=== PATIENT | male | born 1935 | race Two or more races ===

== ENCOUNTER 2025-02-13 14:52 | Outpatient (CLI) | payer OTHER ==
[~2025-02-13 14:52] MED LIST: NABUMETONE500 MG PO; PERCOCET 5/3251 TAB PO
== END 2025-02-13 14:56 | disposition home or self-care (01) ==
LOC: RAD 14:52
PROVIDERS: ATTEND Internal Medicine Cardiovascular Disease
DX: J40 Bronchitis, not specified as acute or chronic (principal); I10 Essential (primary) hypertension; J44.9 Chronic obstructive pulmonary disease, unspecified

== ENCOUNTER 2025-02-22 06:56 | Emergency (ER) | payer OTHER ==
[~2025-02-22] VITALS: Ht 167.6 cm; Wt 86.2 kg
[2025-02-22] MEDS ORDERED: TAMS0.4C PO (07:18)
[2025-02-22] MEDS ORDERED: XARELTO10 MG (07:18)
[2025-02-22 10:09] LABS: BASO % 0.7 % (0.1-1.2); EOS # 0.09 (0.04-0.54); EOS % 1.5 % (0.7-7.0); LYMPH # 1.11 (1.18-3.74); LYMPH % 18.7 % (19.3-53.1); MEAN PLATELET VOLUME 10.70 fl (9.4-12.4); MONO # 0.49 (0.24-0.82); MONO % 8.2 % (4.7-12.5); NEUT # 4.20 (1.56-6.13); NEUT % 70.7 % (34.0-71.1); RED CELL DISTRIBUTION WIDTH 13.9 % (11.6-14.4)
[2025-02-22 10:23] LABS: URINE APPEARANCE Cloudy; URINE BILIRRUBIN Small (NEGATIVE); URINE BLOOD Negative; URINE COLOR Dark Yellow; URINE GLUCOSE Negative (NEGATIVE); URINE KETONE Trace (NEGATIVE); URINE LEUKOCYTE Trace; URINE NITRATE Negative; URINE UROBILINOGEN 1.0 E.U./dl
[2025-02-22 10:27] LABS: URINE BACTERIA 452.3 uL (0.0-1933); URINE EPITHELIAL CELLS 50.9 uL (0.0-38.8); URINE RBC 14.2 uL (0.0-20.8); URINE WBC 9.2 uL (0.0-23.2)
[2025-02-22 10:27] LABS: INR 1.41
[2025-02-22 10:31] LABS: ALT/SGPT 129.0 U/L (12-78); AST/SGOT 123.0 U/L (15-37); BILIRUBIN TOTAL 1.6 mg/dL (0.3-1.2); BUN CREA RATIO 16.0 (7.0-25.0); CREATININE SERUM 1.99 mg/dL (0.70-1.30); GFR 31.95; GLOBULINA 3.4 G/DL (2.4-3.5); GLUCOSE FASTING 140.0 mg/dL (65-100); OSMOLALITY SERUM 285.0 MOSM/KG (275-295)
[2025-02-22 10:48] LABS: URINE CAST > 21.83 uL (0.0-1.40); URINE PROTEIN 100 (NEGATIVE)
[2025-02-22 10:50] LABS: URINE CRYSTALS MODERATE /HPF
[2025-02-22 12:11] LABS: ABG PH 7.410 (7.35-7.45); ABG PO2 83.3 mmHg (80-100); BICARBONATE 21.2 mmol/l (23-25)
[2025-02-22 12:24] LABS: COVID-19 AG NEGATIVE (NEGATIVE)
[2025-02-22 12:35] LABS: o2 21 %
[2025-02-22] MEDS ORDERED: RIVAROXABAN 20 MG TABLET PO ONE (15:00)
== END 2025-02-22 18:05 | disposition left against medical advice (07) ==
LOC: ER 07:11
PROVIDERS: Emergency Medicine; Preventive Medicine Public Health & General Preventive Medicine
DX: I10 Essential (primary) hypertension (principal); Z85.51 Personal history of malignant neoplasm of bladder; Z20.822 Contact with and (suspected) exposure to COVID-19